=== PATIENT | female | born 1980 | race African-American/Black ===

== ENCOUNTER 2020-09-29 08:51 | Outpatient (CLI) | payer MEDICARE, MEDICAID | END 2020-09-29 08:52 | disposition home or self-care (01) | LOC: CSHMAMMO 08:51 | PROVIDERS: ATTEND Family Medicine | DX: N63.20 Unspecified lump in the left breast, unspecified quadrant (principal); Z53.9 Procedure and treatment not carried out, unspecified reason ==

== ENCOUNTER 2022-07-28 14:42 | Outpatient (CLI) | payer MEDICARE, OTHER | END 2022-07-28 14:43 | disposition home or self-care (01) | LOC: CSHMAMMO 14:42 | PROVIDERS: ATTEND Family Medicine | DX: Z12.31 Encounter for screening mammogram for malignant neoplasm of breast (principal) | CPT/HCPCS: 77063; 77067 ==